=== PATIENT | female | born 1950 | race Native Hawaiian/Other Pacific Islander ===

== ENCOUNTER 2020-10-23 13:42 | Outpatient (CLI) | payer BC ==
[2020-10-23 14:22] LABS: POTASSIUM 3.9 mmol/L (3.6-5.2)
[2020-10-23 14:46] LABS: PLATELET COUNT 178 K/uL (152-353)
== END 2020-10-23 20:00 | disposition home or self-care (01) ==
LOC: LAB 13:42
PROVIDERS: ATTEND Nurse Practitioner Family
DX: Z00.00 Encounter for general adult medical examination without abnormal findings (principal); F41.8 Other specified anxiety disorders; E11.9 Type 2 diabetes mellitus without complications; Z79.890 Hormone replacement therapy; K21.9 Gastro-esophageal reflux disease without esophagitis; I10 Essential (primary) hypertension; F32.9 Major depressive disorder, single episode, unspecified; Z79.899 Other long term (current) drug therapy; R53.83 Other fatigue; E53.8 Deficiency of other specified B group vitamins; E55.9 Vitamin D deficiency, unspecified
CPT/HCPCS: 80053; 80061; 82306; 82607; 82670; 83036; 84144; 84403; 84439; 84443; 85027

== ENCOUNTER 2020-11-13 15:24 | Outpatient (CLI) | payer BC | END 2020-11-13 20:00 | disposition home or self-care (01) | LOC: RAD 15:24 | PROVIDERS: ATTEND Nurse Practitioner Family | DX: Z13.820 Encounter for screening for osteoporosis (principal); N95.8 Other specified menopausal and perimenopausal disorders ==